=== PATIENT | male | born 1985 | race Caucasian/White ===

== ENCOUNTER 2021-07-31 17:12 | Emergency (ER) | payer BC ==
[2021-07-31] MEDS ORDERED: IBUPROFEN 400 MG TAB ONE (18:13)
--- NOTE | 2021-07-31 19:19 | ER ---
Nurse's Notes [facility] Name: Jose Scanlon Age: 35 yrs Sex: Male : 1985 Arrival Date: 07/31/2021 Time: 17:15 Bed 13 Private MD: Diagnosis: Streptococcal pharyngitis;Otitis media, unspecified, bilateral Presentation: 07/31 17:43 Chief complaint: Patient states: I have congestion, soar throat, ears stopped up, and a jb4 Migraine. Coronavirus screen: Client presents with at least one sign or symptom that may indicate coronavirus-19. Standard/surgical mask placed on the client. Ebola Screen: No symptoms or risks identified at this time. Initial Sepsis Screen: Does the patient meet any 2 criteria? HR > 90 bpm. Yes Does the patient have a suspected source of infection? No. Patient's initial sepsis screen is negative. Risk Assessment: Do you want to hurt yourself or someone else? Patient reports no desire to harm self or others. Onset of symptoms was July 31, 2021. Transition of care: patient was not received from another setting of care. 17:43 Method Of Arrival: Ambulatory jb4 17:43 Acuity: DIEGO 3 jb4 Historical: - Allergies: 17:45 Morphine; jb4 - Home Meds: 17:45 None [Active]; jb4 - PMHx: 17:45 None; jb4 - PSHx: 17:45 Left knee, lower back, left ear; jb4 - Immunization history:: Adult Immunizations up to date. - Social history:: Smoking status: Patient/guardian denies using tobacco, Stopped _ months ago 8. Screenin:15 Abuse screen: Denies threats or abuse. Nutritional screening: No deficits noted. jh6 Tuberculosis screening: No symptoms or risk factors identified. Fall Risk None identified. Assessment: 18:00 General: Appears in no apparent distress. uncomfortable, Behavior is calm, cooperative, jh6 appropriate for age. 18:00 Pain: Complains of pain in face. Cardiovascular: Reports cough and congestion Denies 6 chest pain, Capillary refill < 3 seconds is brisk JVD is absent. Respiratory: Reports cough that is productive, Airway is patent Trachea midline Respiratory effort is even, unlabored, Breath sounds are clear. 19:40 General: Appears in no apparent distress. Behavior is appropriate for age. Pain: lp1 Complains of pain in right ear and left ear. Neuro: Level of Consciousness is awake, alert, obeys commands. Cardiovascular: Patient's skin is warm and dry. Respiratory: Respiratory effort is even, unlabored. GI: No signs and/or symptoms were reported involving the gastrointestinal system. : No signs and/or symptoms were reported regarding the genitourinary system. EENT: Reports nasal congestion pain when swallowing. Derm: Skin is pink, warm \\T\\ dry. Musculoskeletal: No deficits noted. Vital Signs: 17:43 BP 125 / 87; Pulse 128; Resp 16; Temp 99.2(O); Pulse Ox 97% on R/A; Weight 106.59 kg; jb4 Height 6 ft. 2 in. (187.96 cm) (R); Pain 8/10; 19:42 Pulse 108; Resp 18; Temp 97.9(O); Pulse Ox 98% on R/A; lp1 17:43 Body Mass Index 30.17 (106.59 kg, 187.96 cm) [facility] ED Course: 17:15 Patient arrived in ED. 4 17:44 Triage completed. [facility] 17:45 Rayshawn Antony PA is PHCP. cp 17:45 Ben Bowen MD is Attending Physician. cp 17:45 Arm band placed on right wrist. [facility] 18:00 Strep Sent. [facility] 18:00 COVID-19 SARS RT PCR (Document "Date of Onset" if Symptomatic) Sent. [facility] 18:00 Flu Sent. [facility] 18:00 COVID swab sent to lab. Flu and/or RSV swab sent to lab. Strep swab sent to lab. [facility] 18:03 Madeleine Rubio, RN is Primary Nurse. [facility] 18:15 Bed in low position. Call light in reach. Side rails up X 1. [facility] 19:42 No provider procedures requiring assistance completed. Patient did not have IV access lp1 during this emergency room visit. Administered Medications: 18:09 Drug: Ibuprofen 800 mg Route: PO; 6 19:41 Follow up: Response: Temperature is decreased lp1 19:41 Drug: Augmentin (Amoxicillin-Clavulanate) 875 mg Route: PO; 1 19:41 Follow up: Response: Medication administered at discharge. lp1 Medication: 19:40 VIS not applicable for this client. lp1 Outcome: 19:18 Discharge ordered by . cp 19:42 Discharged to home ambulatory. lp1 19:42 Condition: good 19:42 Discharge instructions given to patient, Instructed on discharge instructions, follow up and referral plans. medication usage, Demonstrated understanding of instructions, follow-up care, medications, Prescriptions given X 2. 19:42 Patient left the ED. lp1 Signatures: Barbara Elder RN RN lp1 Rayshawn Antony PA PA cp Garcia, Rubi 4 Saji Shore RN RN jb4 Nai Mackay [facility] Madeleine Rubio RN RN jh6 Corrections: (The following items were deleted from the chart) 17:46 17:45 PSHx: right knee; sandhya jbStephanie
--- NOTE | 2021-07-31 19:19 | EDPHYS ---
Physician Documentation [facility] Name: Jose Scanlon Age: 35 yrs Sex: Male : 1985 Arrival Date: 07/31/2021 Time: 17:15 Bed 13 Private MD: ED Physician Ben Bowen HPI: 07/31 18:30 This 35 yrs old Male presents to ER via Ambulatory with complaints of Congestion, Ear cp Pain, Sore Throat. 18:30 The patient presents with sore throat. The patient describes throat pain as constant. cp Onset: The symptoms/episode began/occurred yesterday. 18:30 Severity of symptoms: in the emergency department the symptoms are unchanged, despite cp home interventions. Associated signs and symptoms: Pertinent positives: earache, headache, sinus congestion, Pertinent negatives cough. Historical: - Allergies: 17:45 Morphine; jb4 - Home Meds: 17:45 None [Active]; jb4 - PMHx: 17:45 None; jb4 - PSHx: 17:45 Left knee, lower back, left ear; jb4 - Immunization history:: Adult Immunizations up to date. - Social history:: Smoking status: Patient/guardian denies using tobacco, Stopped _ months ago 8. ROS: 18:35 Constitutional: Negative for fever, poor PO intake. cp 18:35 Eyes: Negative for injury, pain, redness, and discharge. cp 18:35 ENT: Positive for ear pain, sore throat, Negative for drainage from ear(s), difficulty swallowing, difficulty handling secretions. 18:35 Cardiovascular: Negative for chest pain. 18:35 Respiratory: Negative for cough, shortness of breath, wheezing. 18:35 Abdomen/GI: Negative for abdominal pain, nausea, vomiting, and diarrhea. 18:35 Neuro: Positive for headache, Negative for altered mental status, weakness. 18:35 All other systems are negative. Exam: 18:40 Constitutional: The patient appears in no acute distress, alert, awake, non-toxic, well cp developed, well nourished. 18:40 Head/Face: Normocephalic, atraumatic. cp 18:40 Eyes: Periorbital structures: appear normal, Conjunctiva: normal, no exudate, no injection, Sclera: no appreciated abnormality, Lids and lashes: appear normal, bilaterally. 18:40 ENT: External ear(s): are unremarkable, Ear canal(s): are normal, clear, TM's: erythema, that is moderate, bilaterally, loss of bony landmarks, bilaterally, Nose: is normal, Mouth: Lips: moist, Oral mucosa: moist, Posterior pharynx: Airway: no evidence of obstruction, patent, swelling, is not appreciated, erythema, that is moderate, exudate, is not appreciated. 18:40 Neck: ROM/movement: is normal, is supple, without pain, no range of motions limitations, no meningismus. 18:40 Chest/axilla: Inspection: normal. 18:40 Cardiovascular: Rate: tachycardic, Rhythm: regular. 18:40 Respiratory: the patient does not display signs of respiratory distress, Respirations: normal, no use of accessory muscles, no retractions, labored breathing, is not present, Breath sounds: are clear throughout, no decreased breath sounds, no stridor, no wheezing. 18:40 Abdomen/GI: Inspection: abdomen appears normal, Palpation: abdomen is soft and non-tender, in all quadrants. 18:40 Skin: no rash present. Vital Signs: 17:43 BP 125 / 87; Pulse 128; Resp 16; Temp 99.2(O); Pulse Ox 97% on R/A; Weight 106.59 kg; jb4 Height 6 ft. 2 in. (187.96 cm) (R); Pain 8/10; 19:42 Pulse 108; Resp 18; Temp 97.9(O); Pulse Ox 98% on R/A; lp1 17:43 Body Mass Index 30.17 (106.59 kg, 187.96 cm) jb4 MDM: 17:47 Patient medically screened. cp 19:18 Data reviewed: vital signs, nurses notes, lab test result(s). cp 19:18 Differential diagnosis: group A strep tonsillitis, influenza, peritonsillar abscess cp retropharyngeal abcess tonsillitis, uvulitis. Counseling: I had a detailed discussion with the patient and/or guardian regarding: the historical points, exam findings, and any diagnostic results supporting the discharge/admit diagnosis, lab results, to return to the emergency department if symptoms worsen or persist or if there are any questions or concerns that arise at home. Response to treatment: the patient's symptoms have mildly improved after treatment, and as a result, I will discharge patient. 07/31 17:46 Order name: Flu; Complete Time: 19:06 aa5 07/31 17:46 Order name: COVID-19 SARS RT PCR (Document "Date of Onset" if Symptomatic) [facility] 07/31 17:46 Order name: Strep; Complete Time: 19:06 aa5 07/31 19:06 Interpretation: Reviewed. cp Administered Medications: 18:09 Drug: Ibuprofen 800 mg Route: PO; 6 19:41 Follow up: Response: Temperature is decreased lp1 19:41 Drug: Augmentin (Amoxicillin-Clavulanate) 875 mg Route: PO; lp1 19:41 Follow up: Response: Medication administered at discharge. lp1 Disposition Summary: 07/31/21 19:18 Discharge Ordered Location: Home cp Problem: new cp Symptoms: have improved cp Condition: Stable cp Diagnosis - Streptococcal pharyngitis cp - Otitis media, unspecified, bilateral cp Followup: cp - With: Emergency Department - When: As needed - Reason: Worsening of condition Discharge Instructions: - Discharge Summary Sheet cp - Otitis Media, Adult cp - Strep Throat, Adult cp Forms: - Medication Reconciliation Form cp - Thank You Letter cp - Antibiotic Education cp - Prescription Opioid Use cp Prescriptions: - Augmentin 875-125 mg Oral Tablet - take 1 tablet by ORAL route every 12 hours for 10 days; 20 tablet; Refills: 0, cp Product Selection Permitted - Ibuprofen 800 mg Oral Tablet - take 1 tablet by ORAL route every 8 hours As needed take with food; 30 tablet; cp Refills: 0, Product Selection Permitted Addendum: 08/01/2021 23:27 Co-signature as Attending Physician, Ben Bowen MD. r n Signatures: Dispatcher [employer] EDBen Bliss MD MD rn Pena, Laura RN RN lp1 Rayshawn Antony PA PA cp Saji Shore, RN RN jb4 Madeleine Rubio RN RN jh6 Corrections: (The following items were deleted from the chart) 07/31 17:46 17:45 PSHx: right knee; sandhya arthur 08/01 19:14 18:30 This 35 yrs old Male presents to ER via Ambulatory with complaints of Congestion, cp Ear Pain, Sore Throat. cp
[2021-07-31] MEDS ORDERED: AMOX/K CLAV 875 MG TAB ONE (19:24)
[2021-07-31 19:48] VITALS: BP 125/87
[2021-07-31 19:49] VITALS: TEMP 97.9; O2SAT 98
== END 2021-07-31 19:42 | disposition home or self-care (01) ==
LOC: ER 17:12
DX: J02.0 Streptococcal pharyngitis (principal); H66.93 Otitis media, unspecified, bilateral; Z20.822 Contact with and (suspected) exposure to COVID-19; Z88.5 Allergy status to narcotic agent
CPT/HCPCS: 87081; 87804 ×2; 99283; U0003